=== PATIENT | male | born 1965 | race Caucasian/White ===

== ENCOUNTER 2020-02-22 18:52 | Emergency (ER) | payer SELFPAY ==
[~2020-02-22] VITALS: Ht 165.1 cm; Wt 72.6 kg
[2020-02-22 19:04] VITALS: Ht 165.1 cm; Wt 72.6 kg
[2020-02-22 21:16] LABS: BASOPHIL % 0.4 % (0-2); RED CELL DISTRIBUTION WIDTH 13.3 % (11.5-14.5)
[2020-02-22 21:21] LABS: PLATELET COUNT 127 x10^3mcL (130-400)
[2020-02-22 21:28] LABS: CALCIUM 8.2 mg/dL (8.5-10.1); CARBON DIOXIDE 24.1 mmol/L (21-32); CHLORIDE SERUM 98 mmol/L (98-107); CREATININE SERUM 1.2 mg/dL (0.7-1.3); GFR1 > 60 mL/min; GLUCOSE SERUM 152 mg/dL (74-106); POTASSIUM SERUM 3.9 mmol/L (3.5-5.1); SODIUM SERUM 136 mmol/L (136-145)
[2020-02-22 21:33] LABS: ALBUMIN 3.6 g/dL (3.4-5.0); ALKALINE PHOSPHATASE 41 U/L (46-116); ALT/SGPT 88 U/L (16-63); AST/SGOT 92 U/L (15-37); BILIRUBIN TOTAL 0.54 mg/dL (0.20-1.00); LIPASE 239 IU/L (73-393)
[2020-02-22 22:38] VITALS: BP 117/73
[2020-03-01] MEDS ORDERED: FORTAMET500 M1 (13:31)
== END 2020-02-22 22:38 | disposition home or self-care (01) ==
LOC: ED 18:52
PROVIDERS: Emergency Medicine
DX: U07.1 COVID-19 (principal); J12.89 Other viral pneumonia; R74.0 Nonspecific elevation of levels of transaminase and lactic acid dehydrogenase [LDH]; R11.0 Nausea; E11.9 Type 2 diabetes mellitus without complications
CPT/HCPCS: J2405; J7030; U0003-CS